=== PATIENT | male | born 1970 | race Native Hawaiian/Other Pacific Islander ===

== ENCOUNTER 2017-09-11 20:31 | Emergency (ER) | payer OTHER ==
[~2017-09-11] VITALS: Ht 188 cm; Wt 106.6 kg
[2017-09-11 21:22] LABS: PLATELET COUNT 195 K/uL (142-355)
[2017-09-11 21:40] LABS: POTASSIUM 3.9 mmol/L (3.6-5.2)
[2017-09-12 00:02] VITALS: BP 146/92; TEMP 97.7
== END 2017-09-12 00:02 | disposition home or self-care (01) ==
LOC: ED 20:31
PROVIDERS: Specialist
DX: K92.2 Gastrointestinal hemorrhage, unspecified (principal)
CPT/HCPCS: 36415; 74022; 80053; 81000; 82150; 83690; 83880; 85027; 85610; 85730; 99283

== ENCOUNTER 2019-01-25 10:29 | Emergency (ER) | payer OTHER ==
[~2019-01-25] VITALS: Ht 188 cm; Wt 104.3 kg
[2019-01-25 11:45] VITALS: BP 155/91; TEMP 98
== END 2019-01-25 11:45 | disposition home or self-care (01) ==
LOC: ED 10:29
PROC: 2W3MX1Z Immobilization of Left Lower Extremity using Splint (ICD-10-PCS; principal; 2019-01-25)
DX: S83.92XA Sprain of unspecified site of left knee, initial encounter (principal); X50.9XXA Other and unspecified overexertion or strenuous movements or postures, initial encounter
CPT/HCPCS: 99283

== ENCOUNTER 2019-11-12 06:08 | Emergency (ER) | payer OTHER ==
[~2019-11-12] VITALS: Ht 188 cm; Wt 106.6 kg
[2019-11-12 06:18] VITALS: TEMP 99.6
[2019-11-12 06:57] LABS: PLATELET COUNT 188 K/uL (142-355)
[2019-11-12 07:03] LABS: POTASSIUM 3.6 mmol/L (3.6-5.2)
[2019-11-12 10:31] VITALS: BP 134/68
== END 2019-11-12 10:32 | disposition still patient (30) ==
LOC: ED 06:08
PROVIDERS: Hospitalist
DX: R10.84 Generalized abdominal pain (principal); R11.2 Nausea with vomiting, unspecified; R19.7 Diarrhea, unspecified; A05.9 Bacterial foodborne intoxication, unspecified
CPT/HCPCS: 80053; 81000; 82150; 83690; 85027; 96360; 96375; 99284; J2405; Q9963

== ENCOUNTER 2020-01-29 06:55 | Emergency (ER) | payer OTHER ==
[~2020-01-29] VITALS: Ht 188 cm; Wt 111.1 kg
[2020-01-29 06:55] VITALS: TEMP 98.8
[2020-01-29 08:28] LABS: PLATELET COUNT 171 K/uL (142-355)
[2020-01-29 08:38] LABS: POTASSIUM 4.1 mmol/L (3.6-5.2); SODIUM 136 mmol/L (136-145)
[2020-01-29 09:00] VITALS: BP 148/90
== END 2020-01-29 09:15 | disposition still patient (30) ==
LOC: ED 06:59
PROVIDERS: Hospitalist
DX: I16.0 Hypertensive urgency (principal); R51 Headache
CPT/HCPCS: 80053; 82550; 83880; 84484; 85027; 93005; 96374; 96375; 99284; J0360; J1885; J2405